=== PATIENT | male | born 1980 | race American Indian/Alaskan Native ===

== ENCOUNTER 2021-05-22 22:58 | Emergency (ER) | payer SELFPAY ==
--- NOTE | 2021-05-23 00:09 | Emergency Department Report ---
ED General Adult HPI - General Chief complaint: Dyspnea/Respdistress Stated complaint: I am coughing, my side hurts. PUI?: No Time Seen by Provider: 05/23/21 00:08 Source: patient, RN notes reviewed Mode of arrival: Ambulatory Limitations: No Limitations - History of Present Illness Initial comments: The patient was evaluated in the emergency department for symptoms described in the history of present illness. He/she was evaluated in the context of the global COVID-19 pandemic, which necessitated consideration that the patient might be at risk for infection with the virus that causes COVID-19. Institutional protocols and algorithms that pertain to the evaluation of patients at risk for COVID-19 are in a state of rapid change based on information released by regulatory bodies including the CDC and federal and state organizations. These policies and algorithms were followed during the patient's care in the emergency department. Please note that these policies, procedures and recommendations changed on a rapid basis. The patient is a 41-year-old gentleman. He is not known to myself previously. He is COVID-19 vaccinated. He occasionally consumes tobacco or marijuana. He presents to the ER today with a complaint of right upper quadrant pain, right lateral thoracic pain, coughing. Denies travel, surgery, immobilization, DVT and pulmonary embolism risk factors. Denies headache, neck pain, central left-s ided chest pain. Denies diarrhea. Denies extremity weakness and numbness. Pain throbbing and aching, increases with palpation and range of motion. It decreases with rest. Has not taken Tylenol or Motrin at home. Has taken [id number] cold remedies, with minimal improvement/no improvement in symptoms. -: Gradual, days(s) Location: chest (Right lateral chest wall), abdomen (Right upper quadrant) Consistency: other Improves with: other Worsens with: other - Related Data Previous Rx's Medication Instructions Recorded Last Taken Type Acetaminophen [Non-Aspirin Extra 500 mg PO Q6HR PRN #30 tablet 05/23/21 Unknown Rx Strength] Albuterol Sulfate [Proair 90 mcg IH Q4HR PRN #2 aer.pow.ba 05/23/21 Unknown Rx Respiclick] Ibuprofen [Motrin] 600 mg PO Q8H PRN #30 tablet 05/23/21 Unknown Rx Metoclopramide [Reglan] 10 mg PO QID PRN #30 tablet 05/23/21 Unknown Rx Allergies Allergy/AdvReac Type Severity Reaction Status Date / Time No Known Allergies Allergy Unverified 02/08/21 10:07 ED Review of Systems ROS: Stated complaint: SHORT OF BREATH Other details as noted in HPI Constitutional: denies: fever Eyes: denies: eye discharge ENT: denies: epistaxis Respiratory: cough, shortness of breath Cardiovascular: chest pain (Right lateral chest wall pain) Gastrointestinal: abdominal pain (Right upper quadrant abdominal pain) Musculoskeletal: back pain Neurological: weakness Psychiatric: anxiety Hematological/Lymphatic: denies: easy bleeding ED Past Medical Hx - Past Medical History Previous Medical History?: No - Surgical History Past Surgical History?: No - Social History Smoking Status: Never Smoker Substance Use Type: Alcohol - Medications Home Medications: Home Medications Medication Instructions Recorded Confirmed Last Taken Type Acetaminophen [Non-Aspirin Extra 500 mg PO Q6HR PRN #30 tablet 05/23/21 Unknown Rx Strength] Albuterol Sulfate [Proair 90 mcg IH Q4HR PRN #2 aer.pow.ba 05/23/21 Unknown Rx Respiclick] Ibuprofen [Motrin] 600 mg PO Q8H PRN #30 tablet 05/23/21 Unknown Rx Metoclopramide [Reglan] 10 mg PO QID PRN #30 tablet 05/23/21 Unknown Rx ED Physical Exam - General General appearance: alert, anxious, in distress, obese - Head Head exam: Present: atraumatic, normocephalic - Eye Eye exam: Present: normal appearance, EOMI. Absent: nystagmus - ENT ENT exam: Present: normal exam, normal orophraynx, mucous membranes moist, normal external ear exam - Neck Neck exam: Present: normal inspection, full ROM. Absent: tenderness, meningismus - Respiratory Respiratory exam: Present: normal lung sounds bilaterally, chest wall tenderness. Absent: respiratory distress, wheezes, rales, rhonchi, stridor - Cardiovascular Cardiovascular Exam: Present: regular rate, normal rhythm, normal heart sounds. Absent: bradycardia, tachycardia, irregular rhythm, systolic murmur, diastolic murmur, rubs, gallop - GI/Abdominal GI/Abdominal exam: Present: soft, tenderness, other (There is right upper quadrant tenderness. There is right flank tenderness.). Absent: distended, guarding, rebound, rigid, pulsatile mass - Rectal Rectal exam: Present: deferred - Extremities Exam Extremities exam: Present: normal inspection, full ROM, other (2+ pulses noted in the bilateral upper and lower extremities. There is no palpable cord. negative Homans sign. Muscular compartments are soft. The pelvis is stable.). Absent: pedal edema, calf tenderness - Back Exam Back exam: Present: normal inspection, full ROM, paraspinal tenderness. Absent: tenderness, CVA tenderness (R), CVA tenderness (L) - Neurological Exam Neurological exam: Present: alert, oriented X3, normal gait, other (No facial droop. Tongue midline. Extraocular movements intact bilaterally. Facial sensation intact to light touch in V1, V2, V3 distribution bilaterally. 5 and a 5 strength in 4 extremities. Sensation intact to light touch in 4 ex tremities.). Absent: motor sensory deficit - Psychiatric Psychiatric exam: Present: anxious - Skin Skin exam: Present: warm, dry, intact, normal color. Absent: rash ED Course Vital Signs 05/22/21 05/23/21 23:54 03:49 Temperature 98.4 F Pulse Rate 88 Respiratory 18 Rate Blood Pressure 129/67 Blood Pressure 100/80 [Right] O2 Sat by Pulse 93 Oximetry - Reevaluation(s) Reevaluation #1: 05/23/21 01:34 Differential diagnosis, including but not limited to: Bronchitis, pneumonia, costochondritis, cholecystitis, renal colic, pancreatitis Assessment and plan 41-year-old gentleman with cough, chest wall pain, right upper quadrant pain which is likely muscular, clinical history and presentation are suggestive of bronchitis. Laboratory studies unremarkable, chest x-ray unremarkable. However, patient appears very uncomfortable. Therefore, we will obtain CT scan of the abdomen pelvis. This will visualize lower lung bases, and if pneumonia is present, it should be demonstrated. Competing/alternative diagnosis, including renal colic, pancreatitis, cholecystitis should be elucidated as well. However, based off of the history, coughing, chest wall pain, mucus production, muscular tenderness which is reproducible, I think a surgical condition is very unlikely. His laboratory studies are not consistent with pancreatitis or cholecystitis. A urinalysis is pending. EKG reviewed and appreciated, fairly unremarkable. The patient is not currently tachycardic, tachypneic or hypoxic, he denies DVT and pulmonary embolism risk factors, he is low risk by Wells criteria for pulmonary embolism, and he is PERC negative. Elevated CK reviewed and appreciated. Renal function within normal limits. Pain medication, fluids ordered. Care will be signed out to the oncoming ER physician, Dr Paz, to follow-up on CT scan of the abdomen pelvis, as well as urinalysis. Presuming no acute pathology, we anticipate discharge with working diagnosis of bronchitis, with costochondritis, and abdominal muscle wall sprain/strain 05/23/21 01:35 05/24/21 01:35 ED Medical Decision Making - Lab Data Result diagrams: 05/23/21 00:39 05/23/21 00:39 Vital Signs 05/22/21 23:54 Temperature 98.4 F Pulse Rate 88 Respiratory 18 Rate Blood Pressure 129/67 O2 Sat by Pulse 93 Oximetry Lab Results 05/23/21 05/23/21 05/23/21 Range/Units 00:39 00:39 00:39 WBC 6.5 (4.5-11.0) K/mm3 RBC 4.49 (3.65-5.03) M/mm3 Hgb 14.1 (11.8-15.2) gm/dl Hct 40.8 (35.5-45.6) % MCV 91 (84-94) fl MCH 32 (28-32) pg MCHC 35 H (32-34) % RDW 13.5 (13.2-15.2) % Plt Count 324 (140-440) K/mm3 Lymph % (Auto) 16.6 (13.4-35.0) % [place] % (Auto) 12.1 H (0.0-7.3) % Eos % (Auto) 5.3 H (0.0-4.3) % Baso % (Auto) 0.5 (0.0-1.8) % Lymph # (Auto) 1.1 L (1.2-5.4) K/mm3 [place] # (Auto) 0.8 (0.0-0.8) K/mm3 Eos # (Auto) 0.3 (0.0-0.4) K/mm3 Baso # (Auto) 0.0 (0.0-0.1) K/mm3 Seg Neutrophils % 65.5 (40.0-70.0) % Seg Neutrophils # 4.2 (1.8-7.7) K/mm3 PT 12.7 (12.2-14.9) Sec. INR 0.90 (0.87-1.13) Sodium 137 (137-145) mmol/L Potassium 4.1 (3.6-5.0) mmol/L Chloride 100.8 (98-107) mmol/L Carbon Dioxide 24 (22-30) mmol/L Anion Gap 16 mmol/L BUN 15 (9-20) mg/dL Creatinine 1.1 (0.8-1.3) mg/dL Estimated GFR > 60 ml/min BUN/Creatinine Ratio 14 % Glucose 138 H (75-100) mg/dL Calcium 9.7 (8.4-10.2) mg/dL Magnesium 2.10 (1.7-2.3) mg/dL Total Bilirubin 0.20 (0.1-1.2) mg/dL AST 31 (5-40) units/L ALT 27 (7-56) units/L Alkaline Phosphatase 77 (35-129) units/L Total Creatine Kinase 1297 H (55-170) units/L Total Protein 8.0 (6.3-8.2) g/dL Albumin 4.5 (3.9-5) g/dL Albumin/Globulin Ratio 1.3 % Lipase 43 (13-60) units/L - EKG Data -: EKG Interpreted by Ne EKG shows normal: sinus rhythm Rate: normal - EKG Data When compared to previous EKG there are: previous EKG unavailable 05/23/21 01:31 EKG interpreted at 12: 53 Sinus rhythm, rate 85 bpm. Normal axis. P wave axis. Motion artifact. Normal intervals. Nonspecific T wave inversions inferior leads. Abnormal EKG. Not a STEMI. - Radiology Data Radiology results: pending, report reviewed, image reviewed [facility] [address] [place] [address] Cat Scan Report Signed Patient: ROME PENA MR#: [id number] : 982 Acct:[id number] Age/Sex: 41 / M ADM Date: 05/22/21 Loc: ED Attending Dr: Ordering Physician: AMY SANCHEZ MD Date of Service: 05/23/21 Procedure(s): CT abdomen pelvis w con Accession Number(s): [id number] cc: AMY SANCHEZ MD CT ABDOMEN AND PELVIS WITH CONTRAST INDICATION: RIGHT flank pain, RIGHT upper quadrant abdominal pain. TECHNIQUE: Axial CT images were obtained through the abdomen and pelvis after 100 cc IV contrast. All CT scans at this location are performed using CT dose reduction for ALARA by means of automated exposure control. COMPARISON: None available. FINDINGS: LOWER CHEST: No significant abnormality. LIVER: Mild hepatomegaly and steatosis. GALLBLADDER: No significant abnormality. BILE DUCTS: No significant abnormality. PANCREAS: No significant abnormality. SPLEEN: No significant abnormality. ADRENALS: No significant abnormality. RIGHT KIDNEY and URETER: No significant abnormality. LEFT KIDNEY and URETER: No significant abnormality. STOMACH and SMALL BOWEL: No significant abnormality. COLON: No significant abnormality. APPENDIX: Normal. PERITONEUM: No free fluid. No free air. No fluid collection. LYMPH NODES: No significant adenopathy. AORTA and ARTERIES: No significant abnormality. IVC and VEINS: No significant abnormality. URINARY BLADDER: No significant abnormality. REPRODUCTIVE ORGANS: No significant abnormality. ADDITIONAL FINDINGS: None. SKELETAL SYSTEM: Chronic unilateral right L5 spondylolysis. No anterolisthesis. IMPRESSION: 1. No CT evidence for appendicitis or other acute inflammatory process. Signer Name: Sina Infante MD Signed: 05/23/2021 2:52 AM Workstation Name: [id number] Transcribed By: TL Dictated By: Sina Infante MD Electronically Authenticated By: Sina Infante MD Signed Date/Time: 05/23/21251 DD/ 9 Critical care attestation.: If time is entered above; I have spent that time in minutes in the direct care of this critically ill patient, excluding procedure time. ED Disposition Clinical Impression: Bronchitis, Right upper quadrant pain, Elevated CK Disposition: 01 HOME / SELF CARE / HOMELESS Is pt being admited?: No Does the pt Need Aspirin: No Condition: Good Instructions: Chronic Bronchitis (ED) Additional Instructions: Please take the prescribed medications as needed and directed. Drink 6 cups of water per day. Take Reglan medication as needed for nausea and vomiting. Do not take metformin medication for the next 2 days, if patient takes this med ication. Symptoms likely coming from bronchitis. Bronchitis symptoms last for a few weeks to a few months. Recommend discontinuation of smoke products, including tobacco and marijuana. Please follow-up with a primary care doctor within the next 3 to 5 days for repeat checkup and evaluation. Please return to the emergency room right away with new pain, worsened pain, migration of pain, projectile vomiting, change in mental status, confusion, inability tolerate liquid feeds, new, worsened or different symptoms not present on the initial emergency room evaluation. Prescriptions: Ibuprofen [Motrin] 600 mg PO Q8H PRN #30 tablet PRN Reason: Pain Acetaminophen [Non-Aspirin Extra Strength] 500 mg PO Q6HR PRN #30 tablet PRN Reason: Pain , Severe (7-10) Albuterol Sulfate [Proair Respiclick] 90 mcg IH Q4HR PRN #2 aer.pow.ba PRN Reason: Wheezing Metoclopramide [Reglan] 10 mg PO QID PRN #30 tablet PRN Reason: Nausea Referrals: REHAN GRANT MD [Staff Physician] - 3-[address] [facility] [Provider Group] - 3-5 Days
[2021-05-23] MEDS ORDERED: HYDROmorphone 1 MG/1 ML INJ IM ONE (00:22)
--- NOTE | 2021-05-23 00:55 | XRay Report ---
CHEST 2 VIEWS INDICATION / CLINICAL INFORMATION: chest wall pain cough. COMPARISON: None available. FINDINGS: SUPPORT DEVICES: None. HEART / MEDIASTINUM: No significant abnormality. LUNGS / PLEURA: No significant pulmonary or pleural abnormality. No pneumothorax. ADDITIONAL FINDINGS: No significant additional findings. IMPRESSION: 1. No acute findings. Signer Name: Sina Infante MD Signed: 05/23/2021 12:50 AM Workstation Name: [id number]
[2021-05-23 01:03] LABS: Basophils % (Auto) 0.5 % (0.0-1.8); Eosinophils # (Auto) 0.3 K/mm3 (0.0-0.4); Eosinophils % (Auto) 5.3 % (0.0-4.3); Hematocrit 40.8 % (35.5-45.6); Hemoglobin 14.1 gm/dl (11.8-15.2); Lymphocytes # (Auto) 1.1 K/mm3 (1.2-5.4); Lymphocytes % (Auto) 16.6 % (13.4-35.0); Mean Corpuscular HGB Conc 35 % (32-34); Mean Corpuscular Volume 91 fl (84-94); Monocytes # (Auto) 0.8 K/mm3 (0.0-0.8); Monocytes % (Auto) 12.1 % (0.0-7.3); Platelet Count 324 K/mm3 (140-440); Red Blood Count 4.49 M/mm3 (3.65-5.03); Red Cell Distribution Width 13.5 % (13.2-15.2)
[2021-05-23 01:15] LABS: Alanine Aminotransferase 27 units/L (7-56); Albumin 4.5 g/dL (3.9-5); BUN/Creatinine Ratio 14; Blood Urea Nitrogen 15 mg/dL (9-20); Calcium 9.7 mg/dL (8.4-10.2); Hemolysis Index 5
[2021-05-23 01:21] LABS: INR 0.9 (0.87-1.13)
[2021-05-23] MEDS ORDERED: LACTATED RINGERS 2,000 ML IV ONE (01:24)
[2021-05-23] MEDS ORDERED: KETOROLAC 30 MG/1 ML INJ IV ONE (01:24)
[2021-05-23 01:38] LABS: Bilirubin,Urine NEG (Negative); Blood,Urine NEG (Negative); Color,Urine Yellow (Yellow); Mucus,Urine FEW /HPF; Protein,Urine <15 mg/dL mg/dL (Negative)
--- NOTE | 2021-05-23 02:57 | Cat Scan Report ---
CT ABDOMEN AND PELVIS WITH CONTRAST INDICATION: RIGHT flank pain, RIGHT upper quadrant abdominal pain. TECHNIQUE: Axial CT images were obtained through the abdomen and pelvis after 100 cc IV contrast. All CT scans at this location are performed using CT dose reduction for ALARA by means of automated exposure contr ol. COMPARISON: None available. FINDINGS: LOWER CHEST: No significant abnormality. LIVER: Mild hepatomegaly and steatosis. GALLBLADDER: No significant abnormality. BILE DUCTS: No significant abnormality. PANCREAS: No significant abnormality. SPLEEN: No significant abnormality. ADRENALS: No significant abnormality. RIGHT KIDNEY and URETER: No significant abnormality. LEFT KIDNEY and URETER: No significant abnormality. STOMACH and SMALL BOWEL: No significant abnormality. COLON: No significant abnormality. APPENDIX: Normal. PERITONEUM: No free fluid. No free air. No fluid collection. LYMPH NODES: No significant adenopathy. AORTA and ARTERIES: No significant abnormality. IVC and VEINS: No significant abnormality. URINARY BLADDER: No significant abnormality. REPRODUCTIVE ORGANS: No significant abnormality. ADDITIONAL FINDINGS: None. SKELETAL SYSTEM: Chronic unilateral right L5 spondylolysis. No anterolisthesis. IMPRESSION: 1. No CT evidence for appendicitis or other acute inflammatory process. Signer Name: Sina Infante MD Signed: 05/23/2021 2:52 AM Workstation Name: [id number]
[2021-05-23 03:50] VITALS: BP 100/80
--- NOTE | 2021-05-23 10:44 | Electrocardiograph Report ---
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
== END 2021-05-23 03:48 | disposition home or self-care (01) ==
LOC: ED 22:58
DX: J40 Bronchitis, not specified as acute or chronic (principal); R10.11 Right upper quadrant pain; R74.8 Abnormal levels of other serum enzymes; Z72.89 Other problems related to lifestyle; Z79.899 Other long term (current) drug therapy
CPT/HCPCS: 36415; 71046; 74177; 80053; 81001; 82550; 83690; 83735; 85025; 85610; 93005; 96361; 96372; 96374; 99284; J1170; J1885; J7120; Q9967

== ENCOUNTER 2021-06-12 22:54 | Emergency (ER) | payer OTHER ==
[2021-06-13] MEDS ORDERED: IBUPROFEN 600 MG TAB PO ONE (03:36)
[2021-06-13] MEDS ORDERED: ACETAMINOPHEN 500 MG TAB PO ONE (03:36)
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
[2021-06-13 05:47] VITALS: BP 119/71
== END 2021-06-13 05:44 | disposition home or self-care (01) ==
LOC: ED 22:54
DX: S20.211A Contusion of right front wall of thorax, initial encounter (principal); M62.830 Muscle spasm of back; V49.49XA Driver injured in collision with other motor vehicles in traffic accident, initial encounter; Y93.89 Activity, other specified; Y92.89 Other specified places as the place of occurrence of the external cause; Y99.8 Other external cause status
CPT/HCPCS: 72100; 99283